=== PATIENT | male | born 1980 | race Two or more races ===

== ENCOUNTER 2024-05-24 20:41 | Inpatient (IN) | payer OTHER ==
[~2024-05-24] VITALS: Ht 167.6 cm; Wt 85.5 kg
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
[2024-05-24] MEDS: ONDANSETRON HCL 4 MG/2 ML VIAL ONE (21:01)
[2024-05-24] MEDS: LORazepam 2MG/ML-1ML VIAL IV ONE (21:01)
[2024-05-24] MEDS: ONDANSETRON HCL 4 MG/2 ML VIAL IV ONE (21:01)
[2024-05-24] MEDS: THIAMINE 100mg/ml INJ (200mg/2ml VIAL) IV ONE (21:13)
[2024-05-24] MEDS: levETIRAcetam 1000 mg/100ml 100 ML IV ONE (21:13)
[2024-05-24] MEDS: SODIUM CHLORIDE 0.9% 1,000 ML IVB ONE (21:14)
[2024-05-24 21:24] LABS: Basophils # (auto) 0.1 10 ^3/uL (0-0.2); Basophils % (auto) 0.8 % (0.0-2.0); Eosinophils # (auto) 0 10 ^3/uL (0-0.8); Hematocrit 45.2 % (41.0-53.0); Lymphocytes # (auto) 0.6 10 ^3/uL (0.4-5.4); Lymphocytes % (auto) 5.6 % (10.0-50.0); Mean Corpuscular Hemoglobin 32.5 pg (28.0-32.0); Mean Corpuscular Hgb Conc. 33.1 g/dL (32.0-36.0); Monocytes # (auto) 0.8 10 ^3/uL (0-1.3); Monocytes % (auto) 7.2 % (0.0-12.0); Neutrophils # (auto) 9.5 10 ^3/uL (1.6-8.6); Neutrophils % (auto) 86.4 % (37.0-80.0); Nucleated Red Blood Cells % 0.1 %; Platelet Count (auto) 308 10^3/uL (140-450); Red Blood Cells 4.61 10^6/uL (4.5-5.90); Red Cell Distribution Width 14.6 % (11.8-14.3)
[2024-05-24 21:52] LABS: Anion Gap 20 (5-15); BUN/Creatinine Ratio 5.2 (10.0-20.0); Blood Alcohol 3.3 mg/dL (<10); Chloride 98 mmol/L (98-107); Magnesium 2.2 mg/dL (1.6-2.6); Potassium 4.5 mmol/L (3.5-5.1)
[2024-05-24 21:53] VITALS: PULSE 95; RESP 20; O2SAT 95
[2024-05-24 22:01] LABS: Alanine Aminotransferase 93 U/L (7-40); Albumin 5.2 g/dL (3.2-4.8); Alkaline Phosphatase 127 U/L (46-116); Aspartate Aminotransferase 80 U/L (13-40); Bilirubin, Total 1.3 mg/dL (0.2-1.0); Blood Urea Nitrogen 6 mg/dL (9-23); Calcium 10.6 mg/dL (8.7-10.4); Carbon Dioxide 17 mmol/L (20-31); Glucose 252 mg/dL (74-106); Sodium 135 mmol/L (136-145); Total Protein 8.4 g/dL (5.7-8.2)
[2024-05-24] MEDS: LORazepam 2MG/ML-1ML VIAL IV SCH (22:11)
--- NOTE | 2024-05-24 22:49 | DVH ---
CT HEAD WITHOUT CONTRAST INDICATION: Seizure, head injury : 44 old Male Seizure, head injury EXAM DATE: 05/24/2024 10:06 PM COMPARISON: None RADIATION DOSE: CTDIvol: 59.43 mGy, DLP: 1071.37 mGy*cm PROCEDURE: CT scans of the head were obtained from the vertex to the skull base. Sagittal and coronal reconstructions were provided. All CT scans at this medical facility are performed using dose modulation techniques as appropriate t o a performed exam including the following: Automated exposure control was utilized; adjustment of th e MA and/or KV according to patient size; and use of iterative reconstruction technique. FINDINGS: There is mild generalized cortical atrophy without evidence for stroke intracranial hemorrhage or mid line shift or mass or intraperitoneal fluid collection. Midline structures including the pituitary are unremarkable given the level of atrophy. Hippocampal structures are symmetric. Mastoid air cells are unremarkable. Calvarium is intact There is right maxillary sinus disease. IMPRESSION: 1. Mild cortical atrophy and right maxillary sinus disease otherwise unremarkable study. Follow-up PE T-CT examination would be appropriate for patient's symptoms .
[2024-05-24 22:55] LABS: Base Excess -2.6 mmol/L (-2.0-3.0)
--- NOTE | 2024-05-24 23:08 | DVH ---
CHEST RADIOGRAPH Indication: Leukocytosis, rule out infection Technique: Single frontal view of the chest was obtained Comparison: None FINDINGS: Heart size is normal trachea is midline. Cece is sharp. Lungs are slightly hypoventilatory. There are increased interstitial markings bilaterally there may be small nodules in the right lung base. . IMPRESSION: 1. There are increased interstitial markings bilaterally etiology uncertain I would recommend follow- up CT examination. There also may be tiny nodules in the right lung base
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
[2024-05-24] MEDS: SODIUM CHLORIDE 0.9% 1,000 ML IV ONE ×2 (23:27)
[2024-05-24] MEDS: FOLIC ACID 1 MG in D5W 5% 50 ML INJ STA (23:28)
[2024-05-24] MEDS ORDERED: DOCUSATE SOD 100 MG CAP PO PRN (23:30)
[2024-05-24] MEDS ORDERED: MORPHINE SULFATE INJ 2 MG/ml SYRG IV PRN (23:30)
[2024-05-24] MEDS ORDERED: ACETAMINOPHEN 325 MG TAB PO PRN (23:30)
[2024-05-24 23:34] LABS: Lactic Acid w/Reflex 8.9 mmol/L (0.4-2.0)
[2024-05-25] VITALS: PULSE 91; RESP 19; O2SAT 96
[2024-05-25 00:19] VITALS: PULSE 85; RESP 18; O2SAT 95
[2024-05-25] MEDS: cefTRIAXone 1GM/50ML D5W 50 ML IV ONE (00:37)
[2024-05-25] MEDS ORDERED: DEXTROSE (50%) 50ML SYRG IV PRN (01:00)
[2024-05-25] MEDS: PIPERACILLIN-TAZOB 3.375GM 100 ML IV ONE (01:15)
[2024-05-25] MEDS: SODIUM CHLORIDE 0.9% 1,000 ML IV SCH (01:15)
[2024-05-25] MEDS: GABAPENTIN 100 MG CAP PO ONE (01:15)
[2024-05-25] MEDS: ACCU-CHEK COMFORT CURVE STRIP VI SCH (04:00)
[2024-05-25] MEDS: InsuLIN REG 1unit/0.01ml Soln (100units/ml) SC SCH (04:00)
[2024-05-25] MEDS: GABAPENTIN 100 MG CAP PO SCH (06:09)
--- NOTE | 2024-05-25 06:36 | DVH ---
Procedure: CT CHEST WITHOUT CONTRAST Reason for study/Clinical History: Evaluate aspiration pneumonia, and lung nodules Comparison Study: None available at time of dictation. Exam Date: 05/25/2024 05:30 AM TECHNIQUE: Multidetector CT of the chest was performed from the lung apices to the upper abdomen with out the use of intravenous contract. Axial, coronal and sagittal multiplanar reformats were performed . Radiation Dose Information: CT Dose: CTDI volume is 11.62 mGy. Dose-length product is 425.57 mGy*cm The dose indicators for CT are the volume Computed Tomography (CT) Dose Index (CTDIvol) and the Dose Length Product (DLP), and are measured in units of mGy and mGy-cm, respectively. These indicators are not patient dose, but values generated from the CT scanner acquisition factors. The report includes radiation exposure data for exposures received during this examination. FINDINGS: Lower neck: Normal thyroid. Lungs: Bibasilar atelectasis. Central airways: Patent. Pleura: No pleural effusion or significant pneumothorax. Heart/Vascular Structures: Normal heart size. No coronary artery calcifications. No pericardial effus ion. Lymph Nodes: No adenopathy Musculoskeletal: No acute osseous abnormality. Soft tissues: Normal. Upper abdomen: Limited portions of the upper abdomen are unremarkable. IMPRESSION: 1. Mild bibasilar atelectasis. No acute disease. Radiation optimization: All CT scans at this facility use at least one of these dose optimization manuel hniques: automated exposure control mA and/or kV adjustment per patient size (includes targeted exam s where dose is matched to clinical indication) or iterative reconstruction.
[2024-05-25 07:04] LABS: Rapid Influenza A Negative (Negative); Rapid Influenza B Negative (Negative)
[2024-05-25 07:05] LABS: COVID19 ANTIGEN SOFIA FIA NEGATIVE (NEGATIVE)
[2024-05-25 07:45] LABS: INR 1.09 (0.9-1.15); Partial Thromboplastin Time 26.5 SEC (24.5-34.5); Prothrombin Time 11.5 sec (9.3-11.8)
[2024-05-25 07:47] LABS: Basophils # (auto) 0 10 ^3/uL (0-0.2); Basophils % (auto) 0.6 % (0.0-2.0); Eosinophils # (auto) 0 10 ^3/uL (0-0.8); Eosinophils % (auto) 0.1 % (0.0-7.0); Hematocrit 36.4 % (41.0-53.0); Hemoglobin 12.4 g/dL (13.5-17.5); Lymphocytes # (auto) 0.7 10 ^3/uL (0.4-5.4); Lymphocytes % (auto) 8.2 % (10.0-50.0); Mean Corpuscular Hemoglobin 32.9 pg (28.0-32.0); Mean Corpuscular Hgb Conc. 34.1 g/dL (32.0-36.0); Mean Corpuscular Volume 96.5 fL (80.0-100.0); Monocytes # (auto) 0.9 10 ^3/uL (0-1.3); Monocytes % (auto) 11.4 % (0.0-12.0); Neutrophils # (auto) 6.4 10 ^3/uL (1.6-8.6); Neutrophils % (auto) 79.7 % (37.0-80.0); Platelet Count (auto) 219 10^3/uL (140-450); Red Blood Cells 3.77 10^6/uL (4.5-5.90); Red Cell Distribution Width 13.8 % (11.8-14.3)
[2024-05-25 07:49] LABS: Albumin 4.1 g/dL (3.2-4.8); Alkaline Phosphatase 91 U/L (46-116); Anion Gap 9 (5-15); BUN/Creatinine Ratio 5.6 (10.0-20.0); Bilirubin, Total 1.1 mg/dL (0.2-1.0); Calcium 9.2 mg/dL (8.7-10.4); Carbon Dioxide 24 mmol/L (20-31); Chloride 105 mmol/L (98-107); Glucose 88 mg/dL (74-106); Magnesium 2.1 mg/dL (1.6-2.6); Phosphorus 4.3 mg/dL (2.4-5.1); Potassium 3.8 mmol/L (3.5-5.1); Sodium 138 mmol/L (136-145); Total Protein 6.4 g/dL (5.7-8.2)
[2024-05-25 08:00] VITALS: PULSE 75; RESP 21; O2SAT 95
[2024-05-25 08:00] LABS: Alanine Aminotransferase 62 U/L (7-40); Aspartate Aminotransferase 49 U/L (13-40); Blood Urea Nitrogen 5 mg/dL (9-23); Creatine Kinase IFCC 339 U/L (46-171)
[2024-05-25 08:05] LABS: Cholesterol 273 mg/dL (< 200)
[2024-05-25 08:06] LABS: CRP High Sensitivity 0.48 mg/dL (<1.0); HDL Cholesterol 126 mg/dL (40-59); LDL Cholesterol 132 mg/dL (< 100); Triglycerides 81 mg/dL (< 150)
--- NOTE | 2024-05-25 09:07 | DVHINCON2 ---
Date of service: May 25, [address] Allan Reason for Consultation Seizure disorder History of Present Illness Mr. Zuhair Alejandro is a 44 years old gentleman with a history of seizure disorder, alcohol abuse, he was brought to the [facility] on 05/24/2024 with a chief company of tremors, nausea, seizure activity. The patient was only oriented to himself, talk slightly when I talked to him, not able to provide history, no family available for the history Apparently, the patient was brought to the ER, he did not know he was last seizure, he did not know his seizure medication, he was not even aware what had happened before he came to the hospital. He was noticed to have alcohol withdrawal symptoms in the emergency room [phone] no answer, , his friend answered, he was a with the patient was is in the hospital, but he says he can not answer medical questions UDS, 05/25/2024: Negative Plasma alcohol, 05/24/2024: 3.3 ABG, 05/24/2024: Respiratory alkalosis CBC, 05/24/2024: Unremarkable Glucose, 05/24/2024: 252 HGB A1c, 05/25/2024: 5.3 Beta hydroxide beauty uric acid, 05/25/2024: 0.511 Lactic acid, 05/24/2024: 8.9 TBI/AST/ALT/AP, 05/25/2024: 1.1/49/62/91 TG/HDL/LDL/HDL, 05/25/2024: 81/273/132/126 Vitamin B12, 05/25/2024: 388 TSH, 05/25/2024: 2.38 Vitamin D, 05/25/2024: 3.3 CT head, 05/24/2024: Mild cortical atrophy and right maxillary sinus disease otherwise unremarkable study. Follow-up PET-CT examination would be appropriate for patient's symptoms Past Medical History Seizures Past Surgical History Unavailable Family History Unknown Social History Smoker: Non-Smoker Alcohol: Heavy Drugs: Denies Drug Use Lives In: Home Allergies: Coded Allergies: NO KNOWN ALLERGIES (Unverified , 05/24/24) Current Medications Current Medications Medications (Trade) Dose Ordered Sig/Chayo Route PRN Reason Start Time Stop Time Status Last Admin Folic Acid 1 mg/ Dextrose 50.2 ml @ 200 mls/hr Q16M STAT INJ 05/24/24 20:57 05/24/24 21:12 DC Lorazepam (Ativan Inj) 2 mg Q2H IV 05/24/24 21:00 05/25/24 06:47 Docusate Sodium (Colace Capsule) 100 mg BIDPRN PRN PO FOR CONSTIPATION 05/24/24 23:30 Acetaminophen (Tylenol Tablet) 650 mg Q6HP PRN PO PAIN SCALE 1-3 OR TEMP>100.4 05/24/24 23:30 Morphine Sulfate 2 mg Q4HPRN PRN IV SEVERE PAIN (7-10 PAIN SCALE) 05/24/24 23:30 Enoxaparin Sodium (Lovenox) 40 mg DAILY SC 05/25/24 10:00 Folic Acid 1 mg/ Magnesium Sulfate 8 meq/ Multivitamins 10 ml/Thiamine HCl 100 mg/Sodium Chloride 1,013.2 ml @ 126.247 mls/hr DAILY@1800 INJ 05/25/24 18:00 Sodium Chloride 1,000 ml @ 125 mls/hr Q8H IV 05/25/24 01:00 05/25/24 01:15 Diagnostic Test (Pha) (Accu-Chek Comfort Curve T) 1 strip IQ4HR 05/25/24 04:00 05/25/24 08:00 Insulin Human Regular (InsuLIN R) IQ4HR SC 05/25/24 04:00 Dextrose 50 ml UD PRN IV Blood Sugar LESS THAN 60 05/25/24 01:00 Gabapentin (Neurontin Capsule) 100 mg TID PO 05/25/24 06:00 05/25/24 06:09 Piperacillin Sod/ Tazobactam Sod 100 ml @ 25 mls/hr Q8H IV 05/25/24 10:00 Review of Systems Unavailable Vital Signs Vital Signs Date Time Temp Pulse Resp B/P (MAP) Pulse Ox O2 Delivery O2 Flow Rate FiO2 05/25/24 08:00 98.3 75 21 146/78 (100) 95 98.3 05/25/24 08:00 Room Air* 0 21 Physical Exam GENERAL EXAM: General: the patient is well developed and nourished. No acute distress. HEENT: Normocephalic, neck is supple, no carotid bruits. No mass. RESPIRATORY: Normal respiratory effort with symmetrical lung expansion. Lungs clear to auscultation. CARDIOVASCULAR: Regular rate and rhythm with no murmurs. S1, S2. ABDOMEN: Soft, nontender, normal bowel sound NEUROLOGICAL: MENTAL STATUS: Sleepy, but easily arousable, only oriented to person SPEECH, LANGUAGE, HIGHER CORTICAL FUNCTION: no aphasia or dysathria. CRANIAL NERVES: #2: Intact visual blanco to confrontation. #3,4,6: Pupils are equal, round and reactive. EOMs full and conjugate. No nystagmus. #5: Facial sensation intact in all three divisions bilaterally. Mandibular strength intact. #7: Facial muscles symmetrical and strength intact. #8: Hearing grossly normal to voice. #9,10: Deferred #11: Deferred #12: Tongue midline. No fasciculations or atrophy. SENSATION: Sensation to touch and pinprick is okay MOTOR: Normal tone in the upper and lower extremity. Normal muscle bulk. No fasciculations. No abnormal movements or posturing. He moves the arms and the legs REFLEXES: Deep tendon reflexes are symmetrical. No pathological reflexes. CEREBELLAR/COORDINATION: Deferred GAIT/STATION: deferred. Labs/Diagnostic Data Labs Test 05/25/24 08:35 05/25/24 07:00 05/25/24 05:55 05/24/24 22:45 Range/Units POC Glucose 100 70-106 mg/dl White Blood Count 8.0 # 4.4-10.8 10^3/uL Red Blood Count 3.77 L 4.5-5.90 10^6/uL Hemoglobin 12.4 #L 13.5-17.5 g/dL Hematocrit 36.4 #L 41.0-53.0 % Mean Corpuscular Volume 96.5 80.0-100.0 fL Mean Corpuscular Hemoglobin 32.9 H 28.0-32.0 pg Mean Corpuscular Hemoglobin Concent 34.1 32.0-36.0 g/dL Red Cell Distribution Width 13.8 11.8-14.3 % Platelet Count 219 140-450 10^3/uL Mean Platelet Volume 7.4 6.9-10.8 fL Neutrophils (%) (Auto) 79.7 37.0-80.0 % Lymphocytes (%) (Auto) 8.2 L 10.0-50.0 % Monocytes (%) (Auto) 11.4 0.0-12.0 % Eosinophils (%) (Auto) 0.1 0.0-7.0 % Basophils (%) (Auto) 0.6 0.0-2.0 % Neutrophils # (Auto) 6.4 1.6-8.6 10 ^3/uL Lymphocytes # (Auto) 0.7 0.4-5.4 10 ^3/uL Monocytes # (Auto) 0.9 0-1.3 10 ^3/uL Eosinophils # (Auto) 0 0-0.8 10 ^3/uL Basophils # (Auto) 0 0-0.2 10 ^3/uL Nucleated Red Blood Cells 0.0 % Prothrombin Time 11.5 9.3-11.8 sec Prothrombin Time INR 1.09 0.9-1.15 Activated Partial Thromboplast Time 26.5 24.5-34.5 SEC Sodium Level 138 136-145 mmol/L Potassium Level 3.8 3.5-5.1 mmol/L Chloride Level 105 98-107 mmol/L Carbon Dioxide Level 24 20-31 mmol/L Anion Gap 9 5-15 Blood Urea Nitrogen 5 L 9-23 mg/dL Creatinine 0.89 0.700-1.30 mg/dL Glomerular Filtration Rate Calc 109 >90 mL/min BUN/Creatinine Ratio 5.6 L 10.0-20.0 Serum Glucose 88 # 74-106 mg/dL Hemoglobin A1c 5.3 <5.7 % A1C Lactic Acid Level 0.8 0.4-2.0 mmol/L Calcium Level 9.2 8.7-10.4 mg/dL Phosphorus Level 4.3 2.4-5.1 mg/dL Magnesium Level 2.1 1.6-2.6 mg/dL Total Bilirubin 1.1 H 0.2-1.0 mg/dL Aspartate Amino Transferase (AST) 49 H 13-40 U/L Alanine Aminotransferase (ALT) 62 H 7-40 U/L Alkaline Phosphatase 91 46-116 U/L Ammonia 29 11-32 umol/L Creatine Kinase 339 H 46-171 U/L C-Reactive Protein High Sensitivity 0.48 <1.0 mg/dL Total Protein 6.4 5.7-8.2 g/dL Albumin 4.1 3.2-4.8 g/dL Triglycerides Level 81 < 150 mg/dL Cholesterol Level 273 H < 200 mg/dL LDL Cholesterol 132 H < 100 mg/dL HDL Cholesterol 126 H 40-59 mg/dL Vitamin B12 Level 388 211-911 pg/mL Vitamin D 25-Hydroxy 13.3 L 30.0-100 ng/mL Beta-Hydroxybutyric Acid 0.511 H < 0.4 mmol/L Thyroid Stimulating Hormone (TSH) 2.38 0.55-4.78 uIU/mL Influenza Type A Antigen Negative Negative Influenza Type B Antigen Negative Negative SARS-CoV-2 Antigen (Rapid) Negative NEGATIVE Blood Gas Specimen Type Arterial Blood Gas Sample Site Right radial Blood Gas Patient Temperature 37.0 Arterial Blood Date Drawn [id number] Arterial Blood pH 7.461 H 7.350-7.450 Arterial Blood Partial Pressure CO2 28.5 L 35.0-48.0 mmHg Arterial Blood Partial Pressure O2 68.6 L 83.0-108.0 mmHg Arterial Blood HCO3 19.9 L 21.0-28.0 mmol/L Arterial Blood Oxygen Saturation 93.4 L 94.0-98.0 % Arterial Blood Base Excess -2.6 L -2.0-3.0 mmol/L Arterial Blood Oxyhemoglobin 92.2 L 94.0-98.0 % Arterial Blood Carboxyhemoglobin 0.8 0.5-1.5 % Arterial Blood Methemoglobin 0.5 0.0-1.5 % Ozzy Test Yes Blood Gas Total Hemoglobin 13.80 13.5-17.5 g/dL Blood Gas Modality Room air FiO2 % 21.0 Blood Gas Critical Value Read Back Yes Test 05/24/24 21:08 Range/Units Plasma/Serum Blood Alcohol 3.3 <10 mg/dL Assessment Seizure activity, likely alcohol withdrawal seizure Alcoholism Delirium tremor Aspiration pneumonia Plan/Recommendation Monitoring Supportive treatment Telemetry EEG Banana bag IV antibiotics Gabapentin 100 mg t.i.d. Lorazepam for seizure activity Hold off preventive seizure treatment More recommendation per clinical course Prognosis: Poor This medical document was created using an electronic medical record system with [employer] dictation system. Although this document has been carefully reviewed, there may still be some phonetic and typographical errors. These areas are purely typographical due to imperfections of the software programs, and do not reflect any compromise in the patient's medical care. Plan discussed with: Other JOHN MIDDLETON MD May 25, 2024 09:07
--- NOTE | 2024-05-25 10:01 | ECG ---
[facility] Test Date: 2024-05-24 Test Time: 23:17:58 Pat Name: CHUNG POST Department: ED Room: 0217 Gender: M Deck Mate: ED : 1980 Requested By: ADOLPH CRISTOBAL Order Number: [id number] Reading MD: Lion Nicole Measurements Intervals [place] Rate: 93 P: 82 WI: 163 QRS: 90 QRSD: 89 T: 44 QT: 359 QTc: 447 Interpretive Statements Sinus rhythm Borderline right axis deviation Electronically Signed On 05-26-2024 21:04:37 PDT by Lion Nicole Please click the below link to view image of tracing.
[2024-05-25] MEDS: PIPERACILLIN-TAZOB 3.375GM 100 ML IV SCH (10:07)
[2024-05-25] MEDS: ENOXAPARIN SOD 40 MG/0.4 ML SYRINGE SC SCH (10:10)
[2024-05-25 10:28] LABS: Urine Bacteria None Seen /hpf (None Seen)
[2024-05-25 10:58] LABS: Urine Blood Negative /uL (Negative); Urine Clarity Clear (Clear); Urine Color Light-Yellow (Yellow); Urine Protein, UAD Negative (Negative); Urine Specific Gravity 1.009 (1.001-1.035); Urine Squamous Epithelial Cell None Seen /hpf (<5); Urine Urobilinogen Normal (Negative); Urine WBC < 1 /HPF (0-3); Urine pH 6.5 (5.0-9.0)
[2024-05-25 11:01] LABS: Amphetamine Screen, Urine Neg (NEGATIVE); Barbiturate Scree,Urine Neg (NEGATIVE); Benzodiazephine Screen, Urine Neg (NEGATIVE); Cannabinoid Screen, Urine Neg (NEGATIVE); Cocaine Screen, Urine Neg (NEGATIVE); Opiate Scree,Urine Neg (NEGATIVE); Phencyclidine Screen, Urine Neg (NEGATIVE)
--- NOTE | 2024-05-25 13:34 | DVHPNRES ---
Progress Note Date Seen: May 25, 2024 Resident Creating Document: KAREN RAYMOND RESIDENT Medical Necessity Reason Pt with a Central, PICC or Fol: No Subjective Review of Systems HPI- Patient is 44 years old male with a history of alcohol abuse, alcoholic pancreatitis, history of seizure likely due to alcoholism came to the ER due to seizure. As per patient he had seizure on Friday twice atrial friends house. As per patient he had nausea before seizure but does not know how long she had the seizure, seizure associated with the tongue biting. No post seizure incontinence. Patient reported he had alcohol on Friday even with the use enrolled in a alcohol withdrawal program last week. Patient also reported past week he had some chills body ache and cramping. Patient has a bruise in the left eye which he reported from hitting a door when someone opened the door from the other side. Initial lab workup revealed leukocytosis WBC 49457, anion gap 20, lactic acid 0.9, CPK 339, serum bilirubin 1.3, AST 80, ALT 93, alkaline phosphatase 127. CT head revealed-1. Mild cortical atrophy and right maxillary sinus disease otherwise unremarkable study. Follow-up PET-CT examination would be appropriate for patient's symptoms.1. There are increased interstitial markings bilaterally etiology uncertain I would recommend follow-up CT examination. There also may be tiny nodules in the right lung base. CT chest- 1. Mild bibasilar atelectasis. No acute disease. PMH-none PSH- mother has diabetes Allergy- NKDA Personal History/ Social History- alcoholism Home medication: He does not recall Patient was seen today at the bedside. Cardiovascular- deny acute chest pain or shortness of breath or cough or palpitation Respiratory denies cough or short of breath or wheezing Gastrointestinal- denies any rectal bleeding, nausea or vomiting Musculoskeletal-denies acute joint swelling or tenderness or redness Neurological- denies acute dysarthria, dysphagia, change in vision Psychiatry- denies depression or SI or HI Skin- denies acute rash or purpura Patient was seen today for clinical evaluation. Labs and chart reviewed. Patient has hand tremor. changed Zosyn to Unasyn. Patient was seen by Neurology, recommendation reviewed and appreciated Objective vital signs Vital Sign Date Time Temp Pulse Resp B/P (MAP) Pulse Ox O2 Delivery O2 Flow Rate FiO2 05/25/24 12:28 98.3 75 21 146/78 (100) 95 98.3 05/25/24 08:00 Room Air* 0 21 Total Intake and Output 05/24/24 05/24/24 05/25/24 15:00 23:00 07:00 Intake Total 130 ml Balance 130 ml medications Current Medications Medications Dose Ordered Sig/Chayo Route Start Time Stop Time Status Last Admin Dose Admin Lorazepam 2 mg Q2H IV 05/24/24 21:00 05/25/24 12:54 2 MG Docusate Sodium 100 mg BIDPRN PRN PO 05/24/24 23:30 Acetaminophen 650 mg Q6HP PRN PO 05/24/24 23:30 Morphine Sulfate 2 mg Q4HPRN PRN IV 05/24/24 23:30 Enoxaparin Sodium 40 mg DAILY SC 05/25/24 10:00 05/25/24 10:10 40 MG Folic Acid 1 mg/ Magnesium Sulfate 8 meq/ Multivitamins 10 ml/Thiamine HCl 100 mg/Sodium Chloride 1,013.2 ml @ 126.247 mls/hr DAILY@1800 INJ 05/25/24 18:00 Sodium Chloride 1,000 ml @ 125 mls/hr Q8H IV 05/25/24 01:00 05/25/24 09:22 125 MLS/HR Diagnostic Test (Pha) 1 strip IQ4HR 05/25/24 04:00 05/25/24 11:42 1 STRIP Insulin Human Regular IQ4HR SC 05/25/24 04:00 Dextrose 50 ml UD PRN IV 05/25/24 01:00 Gabapentin 100 mg TID PO 05/25/24 06:00 05/25/24 06:09 100 MG Ergocalciferol 50,000 unit Q7D PO 05/25/24 11:15 UNV Examination General examination- awake, conversant HEENT- PEERLA, no acute nasal discharge Cardiovascular- S1-S2 audible, rate and rhythm regular, no murmur Respiratory- CTAB, no wheeze or rhonchi Gastrointestinal-nontender, bowel sound+. Nondistended Musculoskeletal-no acute joint swelling or tenderness or redness Lower extremity- no leg edema Neurological- cranial nerves intact, no acute dysarthria or dysphagia Psychiatry- denies depression or SI or HI Skin- no acute rash or purpura laboratory and microbiology Laboratory Tests 05/25/24 07:00 Test 05/25/24 07:00 Range/Units Serum Glucose 88 # 74-106 mg/dL Problem List/Assessment/Plan Problem List/Assessment/Plan Assessment and plan # Metabolic Encephalopathy likely due to alcoholic withdrawal with seizure -continue current IV fluid -continue CIWA protocol as prescribed #Acute Alcohol withdrawal complicated by seizures -continue CIWA protocol as prescribed # acute alcohol withdrawal seizure -patient was seen by neurologist, recommendation reviewed and appreciated #Sepsis probably secondary to aspiration pneumonia -continue Unasyn as prescribed -continue IV fluid prescribed #Aspiration pneumonia -continue Unasyn as prescribed #Sinusitis #Transaminitis -monitor CMP #Mixed metabolic acidosis secondary to hyperlacticacidemia and respiratory alkalosis -continue current IV fluid as prescribed #Hyperglycemia #Hyperlactacidemia -continue IV fluid as prescribed Goals of care, Code status ; discussed with >15 minutes PUD prophylaxis: DVT prophylaxis: Plan discussed with Dr. Gonzales , nursing staff, Total time spent on patient evaluation, chart review, assessment and plan, discussion discussion >35 minutes Plan discussed with: Patient, Other (RN ) My Orders My Orders Orders - KAREN RAYMOND Procedure Category Date Status Time Ergocalciferol PHA 05/25/24 Logged (Vitamin D 50,000 11:15 KAREN RAYMOND May 25, 2024 13:34
[2024-05-25] MEDS: AMPICILLIN & SULBACTAM SODIUM 3 GM in SODIUM CHL 0.9% 100 ML IV SCH (15:32)
[2024-05-25] MEDS: ERGOCALCIFEROL 50,000 UNIT(1.25MG) CAP PO SCH (15:34)
[2024-05-25] MEDS: FOLIC ACID 1 MG, MAGNESIUM SULF SDV 50% 8 MEQ, MULTIPLE VITAMIN 10 ML, THIAMINE INJ 100... INJ SCH (18:35)
[2024-05-25 19:42] VITALS: PULSE 80; RESP 19; O2SAT 97
[2024-05-25] MEDS ORDERED: LORazepam 2MG/ML-1ML VIAL IV PRN ×2 (21:30)
[2024-05-26] VITALS (10 sets, daily range): BP systolic 130–153; BP diastolic 78–94; PULSE 70–88; RESP 17–20; TEMP 97.9–98.8; O2SAT 95–97
[2024-05-26] MEDS ORDERED: LORazepam 2MG/ML-1ML VIAL IV PRN (00:45)
[2024-05-26 07:14] LABS: Basophils # (auto) 0.1 10 ^3/uL (0-0.2); Eosinophils # (auto) 0.1 10 ^3/uL (0-0.8); Eosinophils % (auto) 1.5 % (0.0-7.0); Hemoglobin 13.7 g/dL (13.5-17.5); Lymphocytes # (auto) 1.3 10 ^3/uL (0.4-5.4); Lymphocytes % (auto) 18.6 % (10.0-50.0); Mean Corpuscular Hemoglobin 32.5 pg (28.0-32.0); Mean Corpuscular Hgb Conc. 33.4 g/dL (32.0-36.0); Mean Corpuscular Volume 97.2 fL (80.0-100.0); Monocytes # (auto) 0.5 10 ^3/uL (0-1.3); Monocytes % (auto) 6.7 % (0.0-12.0); Neutrophils % (auto) 72.2 % (37.0-80.0); Platelet Count (auto) 218 10^3/uL (140-450); Red Blood Cells 4.21 10^6/uL (4.5-5.90); Red Cell Distribution Width 13.7 % (11.8-14.3)
[2024-05-26 07:27] LABS: Alkaline Phosphatase 109 U/L (46-116); Anion Gap 10 (5-15); Calcium 9.6 mg/dL (8.7-10.4); Carbon Dioxide 25 mmol/L (20-31); Chloride 104 mmol/L (98-107); Glucose 92 mg/dL (74-106); Potassium 3.5 mmol/L (3.5-5.1); Sodium 139 mmol/L (136-145)
[2024-05-26 07:28] LABS: Total Protein 7.2 g/dL (5.7-8.2)
[2024-05-26 07:29] LABS: Albumin 4.5 g/dL (3.2-4.8); Aspartate Aminotransferase 37 U/L (13-40)
[2024-05-26 07:31] LABS: Alanine Aminotransferase 52 U/L (7-40); BUN/Creatinine Ratio 5.6 (10.0-20.0); Blood Urea Nitrogen < 5 mg/dL (9-23); Creatine Kinase IFCC 209 U/L (46-171)
[2024-05-26 10:43] LABS: Hepatitis A Ab IgM Negative; Hepatitis B Core IgM Negative (Negative); Hepatitis B Surface Antigen Negative (Negative); Hepatitis C Antibody Negative (Negative)
[2024-05-26 10:49] LABS: Hepatitis B Surface Antigen Negative (Negative); Hepatitis C Antibody Negative (Negative)
--- NOTE | 2024-05-26 12:02 | DVH ---
PROCEDURE: MRI OF THE BRAIN WITHOUT CONTRAST. CLINICAL INDICATION: 44 years old, Male; Sz. TECHNIQUE: Multiplanar, multi sequence MRI of the brain was performed without intravenous contrast. COMPARISON: CT scan of the head performed on 05/24/2024. FINDINGS: The signal abnormality of the brain parenchyma is within normal limits. There are no areas of restric mirella diffusion to suggest acute infarct. Mild generalized volume loss. No evidence of space occupying mass lesion, extra-axial collections or hemorrhage is noted. The ventricles, sulci and basal cistern s are intact. There is no signal abnormality in the posterior fossa. The paranasal sinuses and mastoid air cells are well pneumatized. The orbits and nasopharynx are inta ct. The osseous structures are intact. The vessels of the skull base demonstrate signal void consistent with patency. IMPRESSION: 1. No acute intracranial abnormality.
--- NOTE | 2024-05-26 13:39 | DVHPNRES ---
Progress Note Date Seen: May 26, 2024 Resident Creating Document: KAREN RAYMOND RESIDENT Medical Necessity Reason Pt with a Central, PICC or Fol: No Subjective Review of Systems HPI- Patient is 44 years old male with a history of alcohol abuse, alcoholic pancreatitis, history of seizure likely due to alcoholism came to the ER due to seizure. As per patient he had seizure on Friday twice atrial friends house. As per patient he had nausea before seizure but does not know how long she had the seizure, seizure associated with the tongue biting. No post seizure incontinence. Patient reported he had alcohol on Friday even with the use enrolled in a alcohol withdrawal program last week. Patient also reported past week he had some chills body ache and cramping. Patient has a bruise in the left eye which he reported from hitting a door when someone opened the door from the other side. Initial lab workup revealed leukocytosis WBC 11067, anion gap 20, lactic acid 0.9, CPK 339, serum bilirubin 1.3, AST 80, ALT 93, alkaline phosphatase 127. CT head revealed-1. Mild cortical atrophy and right maxillary sinus disease otherwise unremarkable study. Follow-up PET-CT examination would be appropriate for patient's symptoms.1. There are increased interstitial markings bilaterally etiology uncertain I would recommend follow-up CT examination. There also may be tiny nodules in the right lung base. CT chest- 1. Mild bibasilar atelectasis. No acute disease. MRI of the brain-1. No acute intracranial abnormality. PMH-none PSH- mother has diabetes Allergy- NKDA Personal History/ Social History- alcoholism Home medication: He does not recall Patient was seen today at the bedside. Cardiovascular- deny acute chest pain or shortness of breath or cough or palpitation Respiratory denies cough or short of breath or wheezing Gastrointestinal- denies any rectal bleeding, nausea or vomiting Musculoskeletal-denies acute joint swelling or tenderness or redness Neurological- denies acute dysarthria, dysphagia, change in vision Psychiatry- denies depression or SI or HI Skin- denies acute rash or purpura Patient was seen today for clinical evaluation. Labs and chart reviewed. S shreyasus post neurology consult. Patient is having EEG today. MRI of the brain-1. No acute intracranial abnormality. Objective vital signs Vital Sign Date Time Temp Pulse Resp B/P (MAP) Pulse Ox O2 Delivery O2 Flow Rate FiO2 05/26/24 12:22 98.1 84 20 139/90 (106) 97 98.1 05/26/24 08:00 Room Air* 0 21 Total Intake and Output 05/25/24 05/25/24 05/26/24 15:00 23:00 07:00 Intake Total 650 ml 475 ml 150 ml Output Total 800 ml Balance -150 ml 475 ml 150 ml medications Current Medications Medications Dose Ordered Sig/Chayo Route Start Time Stop Time Status Last Admin Dose Admin Docusate Sodium 100 mg BIDPRN PRN PO 05/24/24 23:30 Acetaminophen 650 mg Q6HP PRN PO 05/24/24 23:30 Morphine Sulfate 2 mg Q4HPRN PRN IV 05/24/24 23:30 Enoxaparin Sodium 40 mg DAILY SC 05/25/24 10:00 05/26/24 09:16 40 MG Folic Acid 1 mg/ Magnesium Sulfate 8 meq/ Multivitamins 10 ml/Thiamine HCl 100 mg/Sodium Chloride 1,013.2 ml @ 126.247 mls/hr DAILY@1800 INJ 05/25/24 18:00 05/25/24 18:35 126.247 MLS/HR Sodium Chloride 1,000 ml @ 125 mls/hr Q8H IV 05/25/24 01:00 05/26/24 09:16 125 MLS/HR Diagnostic Test (Pha) 1 strip IQ4HR 05/25/24 04:00 05/26/24 11:53 1 STRIP Insulin Human Regular IQ4HR SC 05/25/24 04:00 05/26/24 11:55 2 UNITS Dextrose 50 ml UD PRN IV 05/25/24 01:00 Gabapentin 100 mg TID PO 05/25/24 06:00 05/26/24 05:44 100 MG Ergocalciferol 50,000 unit Q7D PO 05/25/24 11:15 05/25/24 15:34 50,000 UNIT Ampicillin Sodium/ Sulbactam Sodium 3 gm/Sodium Chloride 100 ml @ 100 mls/hr Q6H IV 05/25/24 13:30 05/26/24 08:34 100 MLS/HR Lorazepam 1 mg Q5MINP PRN IV 05/25/24 21:30 Lorazepam 1 mg ONCE PRN IV 05/25/24 21:30 Lorazepam 2 mg Q2H PRN IV 05/26/24 00:45 Examination General examination- awake, conversant HEENT- PEERLA, no acute nasal discharge Cardiovascular- S1-S2 audible, rate and rhythm regular, no murmur Respiratory- CTAB, no wheeze or rhonchi Gastrointestinal-nontender, bowel sound+. Nondistended Musculoskeletal-no acute joint swelling or tenderness or redness Lower extremity- no leg edema Neurological- cranial nerves intact, no acute dysarthria or dysphagia Psychiatry- denies depression or SI or HI Skin- no acute rash or purpura laboratory and microbiology Laboratory Tests 05/26/24 06:00 Test 05/26/24 06:00 Range/Units Serum Glucose 92 74-106 mg/dL Microbiology Date/Time Source Procedure Growth Status 05/25/24 07:00 Blood Blood Culture - Preliminary NO GROWTH AFTER 24 HOURS OF INCUBATION. Resulted Problem List/Assessment/Plan Problem List/Assessment/Plan Assessment and plan # Metabolic Encephalopathy likely due to alcoholic withdrawal with seizure -continue current IV fluid -continue CIWA protocol as prescribed # alcohol withdrawal seizure -MRI of the brain- No acute intracranial abnormality. -status post neurology consult #Alcohol withdrawal complicated by seizures -continue CIWA protocol as prescribed #Sepsis probably secondary to aspiration pneumonia -continue Unasyn as prescribed -continue IV fluid prescribed #Aspiration pneumonia -continue Unasyn as prescribed # acute rhabdomyolysis -CPK trending down -continue current treatment #Sinusitis #Transaminitis -monitor CMP #Mixed metabolic acidosis secondary to hyperlacticacidemia and respiratory alkalosis -continue current IV fluid as prescribed #Hyperglycemia #Hyperlactacidemia -continue IV fluid as prescribed Goals of care, Code status ; discussed with >15 minutes PUD prophylaxis: DVT prophylaxis: Plan discussed with Dr. Gonzales , nursing staff, Total time spent on patient evaluation, chart review, assessment and plan, discussion discussion >35 minutes Plan discussed with: Patient, Other (RN) My Orders My Orders Orders - KAREN RAYMOND Procedure Category Date Status Time Transfer Orders XFER 05/26/24 Transmitted 11:51 Communication Order ORDERS 05/26/24 Transmitted 11:54 KAREN RAYMOND May 26, 2024 13:39
--- NOTE | 2024-05-26 21:13 | DVHEEG2 ---
Neurology EEG Procedural Note Procedural Note EXAM DATE: 05/26/2024 REFERRING DOCTOR: Dr. Middleton TECHNIQUE: Eighteen channels of EEG, 2 channels of EOG, and 1 channel of EKG were recorded using the International 10/20 system. CLINICAL DATA: The patient was referred for an EEG evaluation for the evidence of seizure disorder. MEDICATIONS: See the chart BACKGROUND ACTIVITY: While the patient was awake, the background activity consisted of well regulated 9-10 Hz rhythmic waveforms, symmetrically distributed over both posterior quadrants and was reactive to eye opening. ACTIVATION: Hyperventilation: Not done Photic Stimulation: Not done Sleep: Not seen IMPRESSION: This is a normal EEG. No focal, lateralized, or epileptiform features are noted. If clinically indicated to rule out a seizure disorder, recommend repeat EEG with sleep deprivation. The EKG channel showed a regular heart rate of 90/min [place] [address] JOHN MIDDLETON MD May 26, 2024 21:13
[2024-05-27 01:00] VITALS: BP 145/98; PULSE 77; RESP 18; TEMP 97.8; O2SAT 98
[2024-05-27 05:00] VITALS: BP 158/93; PULSE 75; RESP 18; TEMP 97.8; O2SAT 96
[2024-05-27 06:00] VITALS: BP 156/92; PULSE 81; RESP 19; TEMP 98; O2SAT 97
[2024-05-27 08:00] VITALS: RESP 20; O2SAT 96
--- NOTE | 2024-05-27 09:31 | DVHDSRES ---
Discharge Summary Date of Admission Resident Creating Document: KAREN RAYMOND RESIDENT May 24, 2024 at 23:17 Date of Discharge: May 27, 2024 Admitting Diagnosis Breakthrough seizure, toxic encephalopathy Labs/Diagnostic Data: Laboratory Results Test 05/27/24 07:37 05/26/24 06:00 05/25/24 10:14 05/25/24 07:00 POC Glucose 109 mg/dl (70-106) White Blood Count 7.0 10^3/uL (4.4-10.8) Red Blood Count 4.21 10^6/uL (4.5-5.90) Hemoglobin 13.7 g/dL (13.5-17.5) Hematocrit 41.0 % (41.0-53.0) Mean Corpuscular Volume 97.2 fL (80.0-100.0) Mean Corpuscular Hemoglobin 32.5 pg (28.0-32.0) Mean Corpuscular Hemoglobin Concent 33.4 g/dL (32.0-36.0) Red Cell Distribution Width 13.7 % (11.8-14.3) Platelet Count 218 10^3/uL (140-450) Mean Platelet Volume 7.6 fL (6.9-10.8) Neutrophils (%) (Auto) 72.2 % (37.0-80.0) Lymphocytes (%) (Auto) 18.6 % (10.0-50.0) Monocytes (%) (Auto) 6.7 % (0.0-12.0) Eosinophils (%) (Auto) 1.5 % (0.0-7.0) Basophils (%) (Auto) 1.0 % (0.0-2.0) Neutrophils # (Auto) 5.0 10 ^3/uL (1.6-8.6) Lymphocytes # (Auto) 1.3 10 ^3/uL (0.4-5.4) Monocytes # (Auto) 0.5 10 ^3/uL (0-1.3) Eosinophils # (Auto) 0.1 10 ^3/uL (0-0.8) Basophils # (Auto) 0.1 10 ^3/uL (0-0.2) Nucleated Red Blood Cells 0.0 % Sodium Level 139 mmol/L (136-145) Potassium Level 3.5 mmol/L (3.5-5.1) Chloride Level 104 mmol/L (98-107) Carbon Dioxide Level 25 mmol/L (20-31) Anion Gap 10 (5-15) Blood Urea Nitrogen < 5 mg/dL (9-23) Creatinine 0.90 mg/dL (0.700-1.30) Glomerular Filtration Rate Calc 109 mL/min (>90) BUN/Creatinine Ratio 5.6 (10.0-20.0) Serum Glucose 92 mg/dL (74-106) Calcium Level 9.6 mg/dL (8.7-10.4) Total Bilirubin 1.0 mg/dL (0.2-1.0) Aspartate Amino Transferase (AST) 37 U/L (13-40) Alanine Aminotransferase (ALT) 52 U/L (7-40) Alkaline Phosphatase 109 U/L (46-116) Creatine Kinase 209 U/L (46-171) Total Protein 7.2 g/dL (5.7-8.2) Albumin 4.5 g/dL (3.2-4.8) Hepatitis B Surface Antigen Negative (Negative) Hepatitis C Antibody Negative (Negative) Urine Color Light-yellow (Yellow) Urine Clarity Clear (Clear) Urine pH 6.5 (5.0-9.0) Urine Specific [place] 1.009 (1.001-1.035) Urine Protein Negative (Negative) Urine Ketones 1+ (Negative) Urine Blood Negative /uL (Negative) Urine Nitrite Negative (Negative) Urine Bilirubin Negative (Negative) Urine Urobilinogen Normal mg/dL (Negative) Urine Leukocyte Esterase Negative /uL (Negative) Urine RBC None seen /hpf (0 - 3) Urine Microscopic WBC < 1 /HPF (0-3) Urine Squamous Epithelial Cells None seen /hpf (<5) Urine Bacteria None seen /hpf (None Seen) Urine Glucose 2+ mg/dL (Normal) Urine Opiates Screen Neg (NEGATIVE) Urine Fentanyl Screen Neg (NEGATIVE) Urine Barbiturates Screen Neg (NEGATIVE) Urine Phencyclidine Screen Neg (NEGATIVE) Urine Amphetamines Screen Neg (NEGATIVE) Urine Benzodiazepines Screen Neg (NEGATIVE) Urine Cocaine Screen Neg (NEGATIVE) Urine Cannabinoids Screen Neg (NEGATIVE) Prothrombin Time 11.5 sec (9.3-11.8) Prothrombin Time INR 1.09 (0.9-1.15) Activated Partial Thromboplast Time 26.5 SEC (24.5-34.5) Hemoglobin A1c 5.3 % A1C (<5.7) Lactic Acid Level 0.8 mmol/L (0.4-2.0) Phosphorus Level 4.3 mg/dL (2.4-5.1) Magnesium Level 2.1 mg/dL (1.6-2.6) Ammonia 29 umol/L (11-32) C-Reactive Protein High Sensitivity 0.48 mg/dL (<1.0) Triglycerides Level 81 mg/dL (< 150) Cholesterol Level 273 mg/dL (< 200) LDL Cholesterol 132 mg/dL (< 100) HDL Cholesterol 126 mg/dL (40-59) Vitamin B12 Level 388 pg/mL (211-911) Vitamin D 25-Hydroxy 13.3 ng/mL (30.0-100) Beta-Hydroxybutyric Acid 0.511 mmol/L (< 0.4) Thyroid Stimulating Hormone (TSH) 2.38 uIU/mL (0.55-4.78) Test 05/25/24 05:55 05/24/24 22:45 05/24/24 21:08 Influenza Type A Antigen Negative (Negative) Influenza Type B Antigen Negative (Negative) SARS-CoV-2 Antigen (Rapid) Negative (NEGATIVE) Blood Gas Specimen Type Arterial Blood Gas Sample Site Right radial Blood Gas Patient Temperature 37.0 Arterial Blood Date Drawn [id number] Arterial Blood pH 7.461 (7.350-7.450) Arterial Blood Partial Pressure CO2 28.5 mmHg (35.0-48.0) Arterial Blood Partial Pressure O2 68.6 mmHg (83.0-108.0) Arterial Blood HCO3 19.9 mmol/L (21.0-28.0) Arterial Blood Oxygen Saturation 93.4 % (94.0-98.0) Arterial Blood Base Excess -2.6 mmol/L (-2.0-3.0) Arterial Blood Oxyhemoglobin 92.2 % (94.0-98.0) Arterial Blood Carboxyhemoglobin 0.8 % (0.5-1.5) Arterial Blood Methemoglobin 0.5 % (0.0-1.5) Ozzy Test Yes Blood Gas Total Hemoglobin 13.80 g/dL (13.5-17.5) Blood Gas Modality Room air FiO2 % 21.0 Blood Gas Critical Value Read Back Yes Plasma/Serum Blood Alcohol 3.3 mg/dL (<10) Hepatitis A IgM Antibody Negative Hepatitis B Core IgM Antibody Negative (Negative) Other Laboratory Tests 05/26/24 06:00 Brief Hx & Hospital Course: HPI- Patient is 44 years old male with a history of alcohol abuse, alcoholic pancreatitis, history of seizure likely due to alcoholism came to the ER due to seizure. As per patient he had seizure on Friday twice [facility]. As per patient he had nausea before seizure but does not know how long she had the seizure, seizure associated with the tongue biting. No post seizure incontinence. Patient reported he had alcohol on Friday even with the use enrolled in a alcohol withdrawal program last week. Patient also reported past week he had some chills body ache and cramping. Patient has a bruise in the left eye which he reported from hitting a door when someone opened the door from the other side. Initial lab workup revealed leukocytosis WBC 88220, anion gap 20, lactic acid 0.9, CPK 339, serum bilirubin 1.3, AST 80, ALT 93, alkaline phosphatase 127. CT head revealed-1. Mild cortical atrophy and right maxillary sinus disease otherwise unremarkable study. Follow-up PET-CT examination would be appropriate for patient's symptoms.1. There are increased interstitial markings bilaterally etiology uncertain I would recommend follow-up CT examination. There also may be tiny nodules in the right lung base. CT chest- 1. Mild bibasilar atelectasis. No acute disease. MRI of the brain-1. No acute intracranial abnormality. Hospital course- Patient is 44 years old male with a history of alcohol abuse, alcoholic pancreatitis, history of seizure likely due to alcoholism came to the ER due to seizure. As per patient he had seizure on Friday twice [facility]. As per patient he had nausea before seizure but does not know how long she had the seizure, seizure associated with the tongue biting. No post seizure incontinence. Patient reported he had alcohol on Friday even with the use enrolled in a alcohol withdrawal program last week. Patient also reported past week he had some chills body ache and cramping. Patient has a bruise in the left eye which he reported from hitting a door when someone opened the door from the other side. Initial lab workup revealed leukocytosis WBC 73700, anion gap 20, lactic acid 0.9, CPK 339, serum bilirubin 1.3, AST 80, ALT 93, alkaline phosphatase 127. Urine culture negative, blood culture no growth. CT head revealed-1. Mild cortical atrophy and right maxillary sinus disease otherwise unremarkable study. Follow-up PET-CT examination would be appropriate for patient's symptoms.1. There are increased interstitial markings bilaterally etiology uncertain I would recommend follow-up CT examination. There also may be tiny nodules in the right lung base. CT chest- 1. Mild bibasilar atelectasis. No acute disease. MRI of the brain-1. No acute intracranial abnormality. Patient was treated conservatively. Patient was seen by Nephrology, recommendation reviewed and appreciated. Patient was adamant about going home today. Patient had no seizure activity in last 48 hours. Patient is being discharged home with the thiamine 100 mg p.o. daily, folic acid 1 mg p.o. daily, amlodipine 5 mg p.o. daily, patient was advised to follow up with the primary care physician in 1 week. Patient was also advised to follow up with the neurologist for further evaluation and care. Patient's meds were sent to the pharmacy electronically. Patient was hemodynamically stable on discharge. Assessment # Metabolic Encephalopathy likely due to alcoholic withdrawal with seizure # breakthrough seizure likely from alcohol withdrawal #Alcohol withdrawal complicated by seizures #Sepsis probably secondary to aspiration pneumonia #Aspiration pneumonia # uncontrolled hypertension # acute rhabdomyolysis #Sinusitis #Transaminitis #Mixed metabolic acidosis secondary to hyperlacticacidemia and respiratory alkalosis #Hyperglycemia #Hyperlactacidemia Discharge plan Continue thiamine as prescribed Continue folic acid Amlodipine 5 mg p.o. daily Please follow up with the primary care physician in 1 week Patient was counseled about the effect of alcoholism on health Please follow up with the neurologist in 2-3 weeks Operations or Procedures [place] [id number] Ph: [phone] DIAGNOSTIC IMAGING Diagnostic Imaging Report : [id number] Signed PATIENT: CHUNG LOUIEACCT: [id number] UNIT: [id number] : 1980 LOC: CENTRAL ROOM / BED: 0217 / A AGE / SEX: 44 / M ADM STATUS: ADM IN SERVICE 29 ORDERING PHYSICIAN: JOHN MIDDLETON MD PROCEDURE(s): MBHL - BRAIN HEAD WO CONTRAST REASON: Sz ORDER NUMBER(s): [id number], ACCESSION NUMBER(s): [id number] PROCEDURE: MRI OF THE BRAIN WITHOUT CONTRAST. CLINICAL INDICATION: 44 years old, Male; Sz. TECHNIQUE: Multiplanar, multi sequence MRI of the brain was performed without intravenous contrast. COMPARISON: CT scan of the head performed on 05/24/2024. FINDINGS: The signal abnormality of the brain parenchyma is within normal limits. There are no areas of restricted diffusion to suggest acute infarct. Mild generalized volume loss. No evidence of space occupying mass lesion, extra-axial collections or hemorrhage is noted. The ventricles, sulci and basal cisterns are intact. There is no signal abnormality in the posterior fossa. The paranasal sinuses and mastoid air cells are well pneumatized. The orbits and nasopharynx are intact. The osseous structures are intact. The vessels of the skull base demonstrate signal void consistent with patency. IMPRESSION: 1. No acute intracranial abnormality. ATED BY: ARACELIS ROGER MD DICTATED DATE/TIME: 05/26/241158 SIGNED BY: ARACELIS ROGER MD SIGNED DATE/TIME: 05/26/241158 CC: [place] [address] Ph: [phone] DIAGNOSTIC IMAGING Diagnostic Imaging Report : [id number] Signed PATIENT: CHUNG LOUIEACCT: [id number] UNIT: [id number] : 1980 LOC: OVERFLOW ROOM / BED: [address] [place] [address] AGE / SEX: 44 / M ADM STATUS: ADM IN SERVICE 0050 ORDERING PHYSICIAN: STACEY MIRANDA RESIDENT PROCEDURE(s): CX2CT - CHEST WITHOUT CONTRAST REASON: Evaluate aspiration pneumonia, and lung nodules ORDER NUMBER(s): [id number], ACCESSION NUMBER(s): [id number] Procedure: CT CHEST WITHOUT CONTRAST Reason for study/Clinical History: Evaluate aspiration pneumonia, and lung nodules Comparison Study: None available at time of dictation. Exam Date: 05/25/2024 05:30 AM TECHNIQUE: Multidetector CT of the chest was performed from the lung apices to the upper abdomen without the use of intravenous contract. Axial, coronal and sagittal multiplanar reformats were performed. Radiation Dose Information: CT Dose: CTDI volume is 11.62 mGy. Dose-length product is 425.57 mGy*cm The dose indicators for CT are the volume Computed Tomography (CT) Dose Index (CTDIvol) and the Dose Length Product (DLP), and are measured in units of mGy and mGy-cm, respectively. These indicators are not patient dose, but values generated from the CT scanner acquisition factors. The report includes radiation exposure data for exposures received during this examination. FINDINGS: Lower neck: Normal thyroid. Lungs: Bibasilar atelectasis. Central airways: Patent. Pleura: No pleural effusion or significant pneumothorax. Heart/Vascular Structures: Normal heart size. No coronary artery calcifications. No pericardial effusion. Lymph Nodes: No adenopathy Musculoskeletal: No acute osseous abnormality. Soft tissues: Normal. Upper abdomen: Limited portions of the upper abdomen are unremarkable. IMPRESSION: 1. Mild bibasilar atelectasis. No acute disease. Radiation optimization: All CT scans at this facility use at least one of these dose optimization techniques: automated exposure control mA and/or kV adjustment per patient size (includes targeted exams where dose is matched to clinical indication) or iterative reconstruction. ATED BY: ARACELIS ROGER MD DICTATED DATE/TIME: 05/25/24632 SIGNED BY: ARACELIS ROGER MD SIGNED DATE/TIME: 05/25/24632 CC: [place] [address] Ph: [phone] DIAGNOSTIC IMAGING Diagnostic Imaging Report : [id number] Signed PATIENT: CHUNG LOUIEACCT: [id number] UNIT: [id number] : 1980 LOC: ER ROOM / BED: / AGE / SEX: 44 / M ADM STATUS: REG ER SERVICE 37 ORDERING PHYSICIAN: ADOLPH CRISTOBAL MD PROCEDURE(s): CXR1 - CHEST XRAY 1 VIEW REASON: Leukocytosis, rule out infection ORDER NUMBER(s): [id number], ACCESSION NUMBER(s): [id number] CHEST RADIOGRAPH Indication: Leukocytosis, rule out infection Technique: Single frontal view of the chest was obtained Comparison: None FINDINGS: Heart size is normal trachea is midline. Cece is sharp. Lungs are slightly hypoventilatory. There are increased interstitial markings bilaterally there may be small nodules in the right lung base. . IMPRESSION: 1. There are increased interstitial markings bilaterally etiology uncertain I would recommend follow-up CT examination. There also may be tiny nodules in the right lung base ATED BY: DEVIN GUIDRY MD DICTATED DATE/TIME: 05/24/242304 SIGNED BY: DEVIN GUIDRY MD SIGNED DATE/TIME: 05/24/242304 CC: [place] [address] Ph: [phone] DIAGNOSTIC IMAGING Diagnostic Imaging Report : [id number] Signed PATIENT: CHUNG LOUIEACCT: [id number] UNIT: [id number] : 1980 LOC: ER ROOM / BED: / AGE / SEX: 44 / M ADM STATUS: REG ER SERVICE 56 ORDERING PHYSICIAN: ADOLPH CRISTOBAL MD PROCEDURE(s): HWOCT - HEAD WITHOUT CONTRAST REASON: Seizure, head injury ORDER NUMBER(s): [id number], ACCESSION NUMBER(s): [id number] CT HEAD WITHOUT CONTRAST INDICATION: Seizure, head injury : 44 old Male Seizure, head injury EXAM DATE: 05/24/2024 10:06 PM COMPARISON: None RADIATION DOSE: CTDIvol: 59.43 mGy, DLP: 1071.37 mGy*cm PROCEDURE: CT scans of the head were obtained from the vertex to the skull base. Sagittal and coronal reconstructions were provided. All CT scans at this medical facility are performed using dose modulation techniques as appropriate to a performed exam including the following: Automated exposure control was utilized; adjustment of the MA and/or KV according to patient size; and use of iterative reconstruction technique. FINDINGS: There is mild generalized cortical atrophy without evidence for stroke intracranial hemorrhage or midline shift or mass or intraperitoneal fluid collection. Midline structures including the pituitary are unremarkable given the level of atrophy. Hippocampal structures are symmetric. Mastoid air cells are unremarkable. Calvarium is intact There is right maxillary sinus disease. IMPRESSION: 1. Mild cortical atrophy and right maxillary sinus disease otherwise unremarkable study. Follow-up PET-CT examination would be appropriate for patient's symptoms . ATED BY: DEVIN GUIDRY MD DICTATED DATE/TIME: 05/24/242246 SIGNED BY: DEVIN GUIDRY MD SIGNED DATE/TIME: 05/24/242246 CC: Condition at Discharge: Stable Final Diagnosis/Problems List # Metabolic Encephalopathy likely due to alcoholic withdrawal with seizure # breakthrough seizure likely from alcohol withdrawal #Alcohol withdrawal complicated by seizures #Sepsis probably secondary to aspiration pneumonia #Aspiration pneumonia # uncontrolled hypertension # acute rhabdomyolysis #Sinusitis #Transaminitis #Mixed metabolic acidosis secondary to hyperlacticacidemia and respiratory alkalosis #Hyperglycemia #Hyperlactacidemia Discharge Disposition: Inpatient Rehab Facility Discharge Instruct/Medications Follow Up/Referral: Continue thiamine as prescribed Continue folic acid Amlodipine 5 mg p.o. daily Please follow up with the primary care physician in 1 week Patient was counseled about the effect of alcoholism on health Please follow up with the neurologist in 2-3 weeks Medications: Continue thiamine as prescribed Continue folic acid Amlodipine 5 mg p.o. daily Please follow up with the primary care physician in 1 week Patient was counseled about the effect of alcoholism on health Please follow up with the neurologist in 2-3 weeks Discharge Statement: "Patient was advised to return to the ER or call 911 if any headaches, dizziness, shortness of breath, chest pain, abdominal pain, bleeding, fevers, or worsening of medical condition. Patient was counseled about treatment plan, medications, possible side effects, patientverbalized understanding. All questions were answered to the best of my ability. This discharge took greater then 30 minutes in planning, reviewing documentation, counseling the patient, and discussing with other team members." ASSESSMENT ASSESSMENT Assessment KAREN RAYMOND RESIDENT May 27, 2024 09:31
[2024-05-27] MEDS ORDERED: AMLO1TAB22 PO (09:33)
[2024-05-27] MEDS ORDERED: THIA100T10 PO (09:33)
[2024-05-27] MEDS ORDERED: FOLI-119 PO (09:33)
[2024-05-27] MEDS ORDERED: ERGO1CAP23 PO (09:35)
[2024-05-27] MEDS ORDERED: AMOX500T86 PO (09:35)
[2024-05-27 09:43] VITALS: BP 158/93; PULSE 75; RESP 20; TEMP 97.8; O2SAT 96
[2024-05-27] MEDS: FOLIC ACID 1 MG TAB PO ONE (09:51)
[2024-05-27] MEDS: amLODIPine BESYLATE 5 MG TAB PO SCH (09:52)
[2024-05-27] MEDS: THIAMINE HCL 100 MG TAB PO ONE (09:52)
[2024-05-27] MEDS: amLODIPine BESYLATE 5 MG TAB PO ONE (09:52)
[2024-05-27 10:21] LABS: Chloride 99 mmol/L (98-107)
[2024-05-27 10:22] LABS: Anion Gap 11 (5-15); Calcium 10.1 mg/dL (8.7-10.4); Carbon Dioxide 25 mmol/L (20-31); Potassium 3.2 mmol/L (3.5-5.1); Sodium 135 mmol/L (136-145)
[2024-05-27 10:28] LABS: BUN/Creatinine Ratio 4.9 (10.0-20.0); Blood Urea Nitrogen < 5 mg/dL (9-23); Glucose 166 mg/dL (74-106)
[2024-05-28] MEDS ORDERED: FOLIC ACID 1 MG TAB PO SCH (10:00)
[2024-05-28] MEDS ORDERED: THIAMINE HCL 100 MG TAB PO SCH (10:00)
== END 2024-05-27 11:15 | DRG 720 ==
LOC: ER 20:45 → OVERFLOW 23:17 → TELE-CENTR 05-25 23:13 → CENTRAL 05-26 11:58
PROVIDERS: ADMIT Student in an Organized Health Care Education/Training Program; ATTEND Student in an Organized Health Care Education/Training Program
DX: A41.9 Sepsis, unspecified organism (principal); J69.0 Pneumonitis due to inhalation of food and vomit; G93.41 Metabolic encephalopathy; F10.221 Alcohol dependence with intoxication delirium; F10.231 Alcohol dependence with withdrawal delirium; I10 Essential (primary) hypertension; Z20.822 Contact with and (suspected) exposure to COVID-19; E87.20 Acidosis, unspecified; G40.909 Epilepsy, unspecified, not intractable, without status epilepticus; J32.9 Chronic sinusitis, unspecified; M62.82 Rhabdomyolysis; J18.9 Pneumonia, unspecified organism; F10.239 Alcohol dependence with withdrawal, unspecified; R73.9 Hyperglycemia, unspecified; Y90.9 Presence of alcohol in blood, level not specified
CPT/HCPCS: 36415; 36600; 70450; 70551; 71045; 71250; 80048; 80053; 80061; 80074; 80307; 80320; 81001; 82010; 82140; 82306; 82542; 82550; 82607; 82805; 82962; 83036; 83605; 83735; 84100; 84443; 85025; 85610; 85730; 86141; 86803; 87040; 87086; 87340; 87426; 87804; 93005; 95819; 96365; 96375; G0378; J1815; J2405; J2543; J7060